=== PATIENT | male | born 1970 | race Caucasian/White ===

== ENCOUNTER 2025-04-23 10:13 | Emergency (ER) | payer SELFPAY ==
[2025-04-23 10:15] VITALS: BP 153/104
--- NOTE | 2025-04-23 10:45 | ED.GENMED ---
History of Present Illness
General
Chief Complaint: Skin Surface Trauma
Time Seen by Provider: 04/23/25 10:38
History of Present Illness
History of Present Illness:
54-year-old male presents for evaluation of a left hand laceration sustained on a box spring maker, the tool was clean at the time of the injury. Last tetanus 3 years ago
Review of Systems
Review of Systems
Allergies reviewed?: Yes
All Other Systems: ROS reviewed and negative except as documented in HPI and ROS
Phy Exam
Physical Exam
Physical Exam:
GEN: Well appearing, NAD, WDWN
HEENT: Oral mucosa moist, no scleral icterus
Cardiac: Regular rate
Lung: No respiratory distress, no tachypnea
MSK: No gross deformity or injuries
Skin: Good color, no pallor or jaundice, no rashes. 1.5 cm linear laceration to the 1st/2nd interdigital webspace of the left hand with no active bleeding, no foreign body
Neuro: AO x3, moves all extremities freely
Psych: Calm, cooperative
Course
Vital Signs
Initial and Last Documented VS:
Initial Vital Signs
Temp Pulse Resp BP Pulse Ox
98.3 F 119 16 153/104 96
04/23/25 10:15 04/23/25 10:15 04/23/25 10:15 04/23/25 10:15 04/23/25 10:15
Last Documented Vital Signs
Temp Pulse Resp BP Pulse Ox
98.3 F 119 16 153/104 96
04/23/25 10:15 04/23/25 10:15 04/23/25 10:15 04/23/25 10:15 04/23/25 10:46
Procedures
Laceration Closure
Left hand:
Status of Wound: clean
Size of Wound in cm: 1.5
Description of Wound Edges: sharp
Preparation: cleaned with saline
Anesthesia: 1% Lidocaine with epi
Wound exploration: explored to base- no FB and no tendon involvement
Type of Closure: layered closure and Dermabond-skin glue
Skin Closure Material: other (5-0 monocryl)
Number of sutures: 4
Additional information:
Dermabond applied over subcuticular closure
MDM/Problems Addressed
MDM/Problems Addressed:
Wound closed with subcuticular sutures and overlying glue, discussed supportive care
*Pulse Oximetry
SaO2: 96
Oxygen Mode of Delivery: Room air
Patient hypoxic: no
*Critical Care Note
Total Time (30-74mins, 75-104mins- exclusive of procedures): Not Applicable
ED Attending Note
-
Portions of this chart may have been created with voice recognition software.� Occasional wrong word or��sound alike� substitutions may have occurred due to the inherent limitations of voice recognition software.
Discharge Plan
Departure
Patient Disposition: Home (Routine Discharge)
Date of Disposition: 04/23/25
Time of Disposition: 11:19
Patient with high blood pressure during this ER visit?: No
Discharge Problem:
Laceration of hand, left
Instructions: Laceration Repair With Glue (DC)
Referrals:
NONE,* [Family Provider, Internal Medicine]
Activity Restrictions/Additional Instructions:
The glue serves as a wound barrier thus does not need a dressing overlying the wound unless you plan to work with your hands where you may get very dirty or be exposed to abrasive chemicals
Interventions
Interventions:
*Risk Screen - Suicide Last Done: 04/23/25 10:15
*General Assessment Last Done: 04/23/25 10:15
*Neglect/Abuse Screening Last Done: 04/23/25 10:15
*ED- Fall Risk Assessment Last Done: 04/23/25 10:15
*ED COVID-19 Vaccine History Last Done: 04/23/25 10:15
*Nursing Disposition Last Done: 04/23/25 11:28
ED-Skin Assessment Last Done: 04/23/25 11:27
Discharge Date and Time
Discharge Date/Time: 04/23/25 11:28
Print Language: RUSSIAN
== END 2025-04-23 11:28 | disposition home or self-care (01) ==
LOC: EMR 10:13
PROVIDERS: EMERGENCY PHYSICIAN Emergency Medicine
DX: S61.412A Laceration without foreign body of left hand, initial encounter (principal); W26.0XXA Contact with knife, initial encounter
CPT/HCPCS: 12041; 99282